=== PATIENT | male | born 1955 | race Caucasian/White ===

== ENCOUNTER 2021-07-09 16:02 | Emergency (ER) | payer OTHER ==
[2021-07-09] MEDS ORDERED: LIDOCAINE 1% MPF 5 ML VIAL ONE (16:55)
--- NOTE | 2021-07-09 17:24 | EDPHYS ---
Physician Documentation [facility] Name: Joshua Greenfield Age: 66 yrs Sex: Male : 1955 Arrival Date: 07/09/2021 Time: 16:28 Bed Treatment Private MD: ED Physician Darren Moore HPI: 07/09 17:23 This 66 yrs old Male presents to ER via Ambulatory with complaints of Laceration To jr8 Hand. 17:23 Onset: The symptoms/episode began/occurred acutely, just prior to arrival. Associated jr8 signs and symptoms: The patient has no apparent associated signs or symptoms. The patient has not experienced similar symptoms in the past. The patient has not recently seen a physician. Patient stated that he was utilizing tools at home and accidentally cut the palm of his left hand.. Historical: - Allergies: 16:50 No Known Allergies; ld1 - Immunization history:: Adult Immunizations up to date. - Social history:: Smoking status: Patient denies any tobacco usage or history of. ROS: 17:23 Constitutional: Negative for fever, chills, and weight loss. jr8 17:23 MS/extremity: Positive for laceration, of the left hand. 17:23 Skin: Positive for laceration(s). 17:23 All other systems are negative. Exam: 17:23 Constitutional: This is a well developed, well nourished patient who is awake, alert, jr8 and in no acute distress. Cardiovascular: Regular rate and rhythm with a normal S1 and S2. No gallops, murmurs, or rubs. Normal PMI, no JVD. No pulse deficits. Respiratory: Lungs have equal breath sounds bilaterally, clear to auscultation and percussion. No rales, rhonchi or wheezes noted. No increased work of breathing, no retractions or nasal flaring. MS/ Extremity: Pulses equal, no cyanosis. Neurovascular intact. Full, normal range of motion. Neuro: Awake and alert, GCS 15, oriented to person, place, time, and situation. Motor strength 5/5 in all extremities. Sensory grossly intact. 17:23 Skin: injury, laceration(s), the wound is approximately 2.5 cm(s), with a depth of .5 cm(s), of the left hand, that can be described as no foreign body, irregular, with mild bleeding. Vital Signs: 16:48 BP 138 / 78; Pulse 84; Resp 16; Temp 98.6; Pulse Ox 98% ; Weight 78.02 kg; Height 5 ft. ld1 11 in. (180.34 cm); Pain 6/10; 16:48 Body Mass Index 23.99 (78.02 kg, 180.34 cm) ld1 Laceration: 17:21 Wound Repair of 2.5cm ( 1.0in ) subcutaneous laceration to left hand. Irregularly jr8 shaped.. Distal neuro/vascular/tendon intact. Anesthesia: Local anesthetic administered with 2 mls of 1% lidocaine. Wound prep: Moderate cleansing with betadine, Wound explored extensively. Skin closed with 2 4-0 Prolene using interrupted sutures and sterile technique. Patient tolerated well. MDM: 16:50 Patient medically screened. jr8 17:21 Data reviewed: vital signs, nurses notes, and as a result, I will discharge patient. jr8 Data interpreted: Pulse oximetry: on room air is 98 %. Interpretation: normal. Counseling: I had a detailed discussion with the patient and/or guardian regarding: the historical points, exam findings, and any diagnostic results supporting the discharge/admit diagnosis, the need for outpatient follow up, a family practitioner, to return to the emergency department if symptoms worsen or persist or if there are any questions or concerns that arise at home. 17:21 ED course: Patient up-to-date on tetanus. jr8 Administered Medications: 17:03 Drug: Lidocaine (1 %) 5 mg {Note: given to WOODY Goff.} Route: Infiltration; ss Disposition: 18:18 Co-signature as Attending Physician, Darren Moore MD I agree with the assessment and rn plan of care. Attestation: The patient's history, exam findings, diagnostics, and a summary of any interventions or procedures was reviewed in detail with Denver MCKAY. Disposition Summary: 07/09/21 17:23 Discharge Ordered Location: Home [facility] Problem: new jr8 Symptoms: have improved jr8 Condition: Stable jr8 Diagnosis - Laceration without foreign body of left hand jr8 Followup: jr8 - With: Private Physician - When: 7 - 10 days - Reason: Wound Recheck, Recheck today's complaints, Staple/Suture removal, Re-evaluation by your physician Discharge Instructions: - Discharge Summary Sheet jr8 - Laceration Care, Adult jr8 Forms: - Medication Reconciliation Form jr8 - Thank You Letter jr8 - Antibiotic Education jr8 - Prescription Opioid Use jr8 Signatures: Darren Moore MD MD rn Smirch, Shelby, RN RN Denver Crocker PA PA jr8 Emily Acevedo RN RN ld1
--- NOTE | 2021-07-09 17:24 | ER ---
Nurse's Notes [facility] Name: Joshua Greenfield Age: 66 yrs Sex: Male : 1955 Arrival Date: 07/09/2021 Time: 16:28 Bed Treatment Private MD: Diagnosis: Laceration without foreign body of left hand Presentation: 07/09 16:48 Chief complaint: Patient states: Pt has left hand laceration from tool. Coronavirus ld1 screen: Vaccine status: Patient reports receiving the 2nd dose of the covid vaccine. Client denies travel out of the [place] in the last 14 days. Ebola Screen: Patient negative for fever greater than or equal to 101.5 degrees Fahrenheit, and additional compatible Ebola Virus Disease symptoms Patient denies exposure to infectious person. Patient denies travel to an Ebola-affected area in the 21 days before illness onset. Complicating Factors: There are no complicating factors for this patient. Initial Sepsis Screen: Does the patient meet any 2 criteria? No. Patient's initial sepsis screen is negative. Does the patient have a suspected source of infection? No. Patient's initial sepsis screen is negative. Risk Assessment: Do you want to hurt yourself or someone else? Patient reports no desire to harm self or others. Onset of symptoms was July 09, 2021. 16:48 Method Of Arrival: Ambulatory ld1 16:48 Acuity: JENNIFER 4 ld1 Triage Assessment: 16:50 General: Appears in no apparent distress. uncomfortable, well groomed, well developed, ld1 well nourished, Behavior is calm, cooperative, appropriate for age. Pain: Complains of pain in left hand. Injury Description: Laceration sustained to left hand. Historical: - Allergies: 16:50 No Known Allergies; ld1 - Immunization history:: Adult Immunizations up to date. - Social history:: Smoking status: Patient denies any tobacco usage or history of. Screenin:51 Abuse screen: Denies threats or abuse. Denies injuries from another. Nutritional ld1 screening: No deficits noted. Tuberculosis screening: No symptoms or risk factors identified. Fall Risk None identified. Vital Signs: 16:48 BP 138 / 78; Pulse 84; Resp 16; Temp 98.6; Pulse Ox 98% ; Weight 78.02 kg; Height 5 ft. ld1 11 in. (180.34 cm); Pain 6/10; 16:48 Body Mass Index 23.99 (78.02 kg, 180.34 cm) ld1 ED Course: 16:28 Patient arrived in ED. am2 16:42 Denver Arnold PA is PHCP. ld1 16:42 Darren Moore MD is Attending Physician. ld1 16:50 Triage completed. ld1 16:50 Arm band placed on right wrist. ld1 16:51 Patient has correct armband on for positive identification. Bed in low position. Call ld1 light in reach. Side rails up X 1. 16:57 Emily Acevedo, RN is Primary Nurse. ld1 Administered Medications: 17:03 Drug: Lidocaine (1 %) 5 mg {Note: given to WOODY Goff.} Route: Infiltration; Outcome: 17:23 Discharge ordered by . sameer 17:30 Patient left the ED. Signatures: Milena Rae RN RN Denver Arnold PA PA jr8 Dulce De La Cruz am2 Emily Acevedo, SEEMA RN ld1 Corrections: (The following items were deleted from the chart) 16:50 16:48 Chief complaint: ld1 ld1
[2021-07-09 18:18] VITALS: BP 138/78; TEMP 98.6; O2SAT 98
== END 2021-07-09 17:30 | disposition home or self-care (01) ==
LOC: ER 16:02
PROC: 0JQK0ZZ Repair Left Hand Subcutaneous Tissue and Fascia, Open Approach (ICD-10-PCS; principal; 2021-07-09)
DX: S61.412A Laceration without foreign body of left hand, initial encounter (principal); W27.8XXA Contact with other nonpowered hand tool, initial encounter; Y92.009 Unspecified place in unspecified non-institutional (private) residence as the place of occurrence of the external cause
CPT/HCPCS: 99282